=== PATIENT | male | born 1940 | race Caucasian/White ===

== ENCOUNTER → 2016-04-27 | Outpatient (CLI) | payer MEDICARE, OTHER ==
[~2016-04-27] MED LIST: ADVAIR 10028 PUFF/IN IN; ADVAIR DISKUS 21 DSK IH; ALBUTEROL-200 PUFFS/ IH; AMIODARONE 200200 MG PO; ASPIRIN 325MG325 MG PO; ASPIRIN 81MG TA81 MG PO; ATORVASTATIN CA20 MG PO; CARDIZEM CD120 MG PO; CEFEPIME HYDROCH1 GM IV; CHERRY EXTRACT OR; CLARITIN 10MG T10 MG PO; COQ-10100 MG PO; DILTIAZEM CD 2240 MG PO; DOXYCYCLINE100 M6 PO; FAMOTIDINE 20MG20 MG PO; FENOGLIDE40 MG PO; FUROSEMIDE 20MG20 MG FT; FUROSEMIDE 20MG20 MG PO; GOOD NEIGHBOR P20 M1 PO; IMODIUM 2MG. CAP2 MG PO; LEVOFLOXACIN 7750 M1 PO; LIPITOR40 MG PO; LISINOPRIL 5MG T5 MG PO; LISINOPRIL40 MG PO; LORATADINE 10MG10 M1 PO; METOPROLOL25 MG PO; METOPROLOL50 MG PO; MUCINEX ER600 MG PO; MULTIVITAMIN1 TA1 PO; MULTIVITAMIN1 TAB PO; NEURONTIN 100100 MG PO; NYSTATIN 1 ML1 M1; PERCOCET1 TAB PO; PLAVIX75 MG PO; PRADAXA150 MG PO; PREDNICOT20 MG PO; PREDNISONE 5MG.5 MG PO; PREPARATION H 01 OIN TP; SENOKOT TABLET1 EACH PO; SIMVASTATIN80 MG PO; SINGULAIR 10 MG10 MG PO; SINGULAIR10 MG PO; TRICOR 145 MG145 MG NG; XARELTO20 MG PO; ZOFRAN4 MG PO
--- NOTE | 2016-05-01 04:51 | RADIOLOGY REPORT PS360 ---
CT CHEST W/O CONTRAST HISTORY: Lung disease, shortness of air, history of amiodarone therapy. HIGH RESOLUTION,INTERSTITAL LUNG DISEASE,SOA ORDERING PHYSICIAN: BENJY GOTTI MD PATIENT AGE: 76 years TECHNIQUE: Helical acquisition obtained following the intravenous administration of 75 mL of Isovue 370 .. Axial, sagittal, and coronal reformatted images are generated and reviewed. High-resolution axial images also generated and reviewed. COMPARISON: None FINDINGS: There is been a prior median sternotomy. Coronary artery calcifications are present. Normal heart size. No mediastinal or hilar mass. There is mild centrilobular emphysematous change once again noted. Mild diffuse thickening of the interstitium with mild thickening of the interlobular septa. Mild bronchial thickening noted centrally and in the lung bases with volume loss in the right lung base. No lobar consolidation or collapse. No pleural thickening or effusions. No pulmonary masses. There is a noncalcified 6 mm nodule in the left upper lobe unchanged. IMPRESSION: 1. Overall no change in the appearance of the chest. 2. Chronic interstitial changes consistent with mild interstitial fibrosis not significantly changed. 3. 6 mm left upper lobe nodule which is stable. Continued 6 month follow-up recommended.
== END ==
LOC: RAD 12:40
DX: J84.9 Interstitial pulmonary disease, unspecified (principal); R06.02 Shortness of breath; Z92.29 Personal history of other drug therapy